=== PATIENT | female | born 1950 | race Caucasian/White ===

== ENCOUNTER → 2020-03-17 | Outpatient (CLI) | payer MEDICARE ==
[~2020-03-17] VITALS: Ht 157.5 cm; Wt 81.6 kg
[~2020-03-17] MED LIST: albuterol 2.5 MG/3 ML nebule NEB ONE
[2020-03-17 07:36] LABS: TOTAL HEMOGLOBIN 11.5 G/dl (12.0-16.0)
== END | disposition home or self-care (01) ==
LOC: RT 07:12
PROVIDERS: ATTEND Internal Medicine Pulmonary Disease
DX: R94.2 Abnormal results of pulmonary function studies (principal); J44.9 Chronic obstructive pulmonary disease, unspecified; D64.9 Anemia, unspecified
CPT/HCPCS: 85018; 94060; 94727; 94729; 94760

== ENCOUNTER 2020-03-19 03:12 | Outpatient (CLI) | payer MEDICARE ==
[~2020-03-19] VITALS: Ht 157.5 cm; Wt 81.6 kg
== END 2020-03-19 23:59 | disposition home or self-care (01) ==
LOC: RT 03:12
PROVIDERS: ATTEND Internal Medicine Pulmonary Disease
DX: J44.9 Chronic obstructive pulmonary disease, unspecified (principal)
CPT/HCPCS: 94618